=== PATIENT | female | born 1970 | race African-American/Black ===

== ENCOUNTER 2019-11-28 22:18 | Emergency (ER) | payer OTHER ==
[~2019-11-28] VITALS: Ht 165.1 cm; Wt 72.6 kg
[2019-11-28 22:35] VITALS: BP 165/99
[2019-11-28 23:06] LABS: Basophils # (auto) 0.1 uL; Basophils % (auto) 1.1 % (0.0-2.0); Eosinophils # (auto) 0.2 uL; Eosinophils % (auto) 3.4 % (0.0-7.0); Hematocrit 38.5 % (36.0-46.0); Hemoglobin 12.3 g/dL (12.2-16.2); Lymphocytes # (auto) 1.6 uL; Lymphocytes % (auto) 26.2 % (10.0-50.0); Mean Corpuscular Hemoglobin 23.5 pg (28.0-32.0); Mean Corpuscular Volume 73.5 fL (80.0-100.0); Monocytes # (auto) 0.4 uL; Monocytes % (auto) 6.7 % (0.0-12.0); Neutrophils # (auto) 3.7 uL; Neutrophils % (auto) 62.6 % (37.0-80.0); Nucleated Red Blood Cells % 0.1 %; Platelet Count (auto) 221 10^3/uL (140-450); Red Blood Cells 5.23 10^6/uL (4.0-5.20); Red Cell Distribution Width 14.3 % (11.8-14.3)
[2019-11-28 23:24] LABS: Albumin 3.8 g/dL (3.4-5.0); BUN/Creatinine Ratio 9.3; Potassium 3.5 mmol/L (3.5-5.1)
[2019-11-28 23:26] LABS: Bilirubin, Total 0.3 mg/dL (0.2-1.0); Total Protein 8.2 g/dL (6.4-8.2)
== END 2019-11-29 02:37 | disposition left against medical advice (07) ==
LOC: ER 22:22
DX: L02.414 Cutaneous abscess of left upper limb (principal); Z53.21 Procedure and treatment not carried out due to patient leaving prior to being seen by health care provider
CPT/HCPCS: 36415; 80053; 83690; 85025

== ENCOUNTER 2019-11-29 09:18 | Emergency (ER) | payer MEDICAID, OTHER ==
[~2019-11-29] VITALS: Ht 162.6 cm; Wt 72.6 kg
[2019-11-29] MEDS ORDERED: SODIUM CHLORIDE 0.9% 1,000 ML IVB ONE (09:38)
[2019-11-29] MEDS ORDERED: PANTOPRAZOLE 40 MG/10 ML VIAL INJ IV STA (09:38)
[2019-11-29] MEDS ORDERED: ONDANSETRON HCL 4 MG/2 ML VIAL IV ONE (09:45)
[2019-11-29] MEDS ORDERED: MORPHINE SULFATE 4 MG/ML SYR/VIAL IV ONE (09:45)
[2019-11-29 09:52] LABS: Basophils # (auto) 0.1 uL; Eosinophils # (auto) 0.3 uL; Hemoglobin 12.6 g/dL (12.2-16.2); Lymphocytes # (auto) 2.3 uL; Monocytes # (auto) 0.4 uL; Neutrophils # (auto) 2.5 uL; White Blood Cell 5.5 10^3/uL (4.4-10.8)
[2019-11-29 09:55] LABS: Basophils % (auto) 1.2 % (0.0-2.0); Eosinophils % (auto) 5.6 % (0.0-7.0); Lymphocytes % (auto) 41.7 % (10.0-50.0); Mean Corpuscular Hemoglobin 23.1 pg (28.0-32.0); Mean Corpuscular Hgb Conc. 31.6 g/dL (32.0-36.0); Mean Corpuscular Volume 73.3 fL (80.0-100.0); Monocytes % (auto) 7.2 % (0.0-12.0); Neutrophils % (auto) 44.3 % (37.0-80.0); Nucleated Red Blood Cells % 0.3 %; Platelet Count (auto) 230 10^3/uL (140-450); Red Blood Cells 5.46 10^6/uL (4.0-5.20); Red Cell Distribution Width 14.6 % (11.8-14.3)
[2019-11-29 10:09] LABS: Albumin 3.7 g/dL (3.4-5.0); Calcium 9.4 mg/dL (8.5-10.1); Potassium 3.1 mmol/L (3.5-5.1)
[2019-11-29 10:13] LABS: BUN/Creatinine Ratio 10.2; Bilirubin, Total 0.3 mg/dL (0.2-1.0); Total Protein 8.1 g/dL (6.4-8.2)
[2019-11-29] MEDS ORDERED: cloNIDine HCL 0.1 MG TAB PO ONE ×2 (11:45→13:30)
[2019-11-29] MEDS ORDERED: cloNIDine HCL 0.1 MG TAB ONE (13:22)
[2019-11-29 13:33] VITALS: BP 196/113
== END 2019-11-29 13:43 | disposition home or self-care (01) ==
LOC: ER 09:18
DX: R10.84 Generalized abdominal pain (principal); L03.114 Cellulitis of left upper limb; R11.2 Nausea with vomiting, unspecified; F17.210 Nicotine dependence, cigarettes, uncomplicated
CPT/HCPCS: 36415; 76705; 80053; 83690; 85025; 96361; 96374; 96375; 99284; C9113; J2270; J2405; J7030

== ENCOUNTER 2020-02-12 05:44 | Emergency (ER) | payer MEDICAID ==
[~2020-02-12] VITALS: Ht 162.6 cm; Wt 74.4 kg
[2020-02-12] MEDS ORDERED: MORPHINE SULFATE 4 MG/ML SYR/VIAL IV ONE (06:15)
[2020-02-12] MEDS ORDERED: ONDANSETRON HCL 4 MG/2 ML VIAL IV ONE (06:15)
[2020-02-12 06:54] LABS: Basophils # (auto) 0 10 ^3/uL (0-0.2); Basophils % (auto) 0.6 % (0.0-2.0); Eosinophils # (auto) 0.3 10 ^3/uL (0-0.8); Eosinophils % (auto) 4.5 % (0.0-7.0); Hematocrit 39.9 % (36.0-46.0); Hemoglobin 12.8 g/dL (12.2-16.2); Lymphocytes # (auto) 1.4 10 ^3/uL (0.4-5.4); Lymphocytes % (auto) 22.4 % (10.0-50.0); Mean Corpuscular Hemoglobin 23.4 pg (28.0-32.0); Mean Corpuscular Volume 73.2 fL (80.0-100.0); Monocytes # (auto) 0.3 10 ^3/uL (0-1.3); Monocytes % (auto) 4.4 % (0.0-12.0); Neutrophils # (auto) 4.2 10 ^3/uL (1.6-8.6); Neutrophils % (auto) 68.1 % (37.0-80.0); Nucleated Red Blood Cells % 0.1 %; Platelet Count (auto) 197 10^3/uL (140-450); Red Blood Cells 5.45 10^6/uL (4.0-5.20); Red Cell Distribution Width 14.3 % (11.8-14.3); White Blood Cell 6.1 10^3/uL (4.4-10.8)
[2020-02-12 06:56] LABS: Anion Gap 6 (5-15); Blood Urea Nitrogen 13 mg/dL (7-18); Carbon Dioxide 30 mmol/L (21-32); Chloride 106 mmol/L (98-107); Glucose 85 mg/dL (74-106); Potassium 3.1 mmol/L (3.5-5.1); Sodium 142 mmol/L (136-145)
[2020-02-12 06:57] LABS: Alanine Aminotransferase 24 U/L (13-56); Albumin 3.9 g/dL (3.4-5.0); Amylase 77 U/L (25-115); Aspartate Aminotransferase 19 U/L (15-37); BUN/Creatinine Ratio 11.6; Calcium 9.3 mg/dL (8.5-10.1); GFR African American 66 mL/min; GFR Non-African American 54 mL/min; Lipase 47 U/L (73-393); Magnesium 2.2 mg/dL (1.6-2.6)
[2020-02-12 06:59] LABS: INR 0.99 (0.9-1.15); Partial Thromboplastin Time 26.9 sec (23.64-32.05)
[2020-02-12] MEDS ORDERED: metroNIDAZOLE 500MG/100ML 100 ML IV ONE (07:00)
[2020-02-12] MEDS ORDERED: SODIUM CHLORIDE 0.9% 1,000 ML IV ONE (07:00)
[2020-02-12 07:03] LABS: Alkaline Phosphatase 82 U/L (45-117); Bilirubin, Total 0.3 mg/dL (0.2-1.0); Total Protein 8.2 g/dL (6.4-8.2)
[2020-02-12 09:09] LABS: Urine Amorphous Crystal MANY /hpf (None Seen); Urine Bacteria NONE SEEN /hpf (None Seen); Urine Blood Negative /uL (Negative); Urine Mucus FEW (None Seen); Urine WBC 2 /hpf (0 - 5)
[2020-02-12] MEDS ORDERED: POTASSIUM EFFERVESENT TAB 25 MEQ PO ONE (09:15)
[2020-02-12 09:29] LABS: Amphetamine Screen, Urine POSITIVE (NEGATIVE); Barbiturate Scree,Urine NEGATIVE (NEGATIVE); Benzodiazephine Screen, Urine NEGATIVE (NEGATIVE); Cannabinoid Screen, Urine POSITIVE (NEGATIVE); Cocaine Screen, Urine NEGATIVE (NEGATIVE); Opiate Scree,Urine POSITIVE (NEGATIVE); Phencyclidine Screen, Urine NEGATIVE (NEGATIVE)
[2020-02-12 09:40] VITALS: BP 178/76
== END 2020-02-12 09:46 | disposition home or self-care (01) ==
LOC: ER 05:44
DX: K52.9 Noninfective gastroenteritis and colitis, unspecified (principal); E87.6 Hypokalemia; E86.0 Dehydration; I10 Essential (primary) hypertension
CPT/HCPCS: 36415; 71045; 74176; 80053; 80307; 81001; 82150; 83690; 83735; 84484; 85025; 85610; 85730; 93005; 96361; 96365; 96366; 96375; 99285; J2270; J2405; J3490; J7030

== ENCOUNTER 2023-04-15 06:12 | Emergency (ER) | payer MEDICAID ==
[~2023-04-15] VITALS: Ht 165.1 cm; Wt 74.7 kg
[2023-04-15] MEDS ORDERED: HYDROcodone-ACET 5/325MG TAB PO ONE (06:45)
[2023-04-15] MEDS ORDERED: ONDANSETRON ODT 4 MG TAB PO ONE (06:45)
[2023-04-15] MEDS ORDERED: IBUPROFEN 600 MG TAB PO ONE (06:45)
[2023-04-15] MEDS ORDERED: LISINOPRIL 20 MG TAB PO ONE (06:45)
[2023-04-15] MEDS ORDERED: cloNIDine HCL 0.1 MG TAB PO ONE ×2 (08:15→09:15)
[2023-04-15] MEDS ORDERED: hydrALAZINE HCL 10 MG TAB PO ONE (09:15)
[2023-04-15] MEDS ORDERED: CEPHALEXIN 250 MG CAP PO ONE (09:15)
[2023-04-15] MEDS ORDERED: AMLO1TAB23 PO ×2 (09:22→16:03)
[2023-04-15] MEDS ORDERED: CEPH250C PO ×2 (09:22→16:03)
[2023-04-15] MEDS ORDERED: IBU600T PO ×2 (09:55→16:03)
[2023-04-15 10:00] VITALS: BP 154/85
== END 2023-04-15 10:45 | disposition home or self-care (01) ==
LOC: ER 06:12
DX: L03.032 Cellulitis of left toe (principal); I10 Essential (primary) hypertension; F17.210 Nicotine dependence, cigarettes, uncomplicated; F12.90 Cannabis use, unspecified, uncomplicated; Z91.148 Patient's other noncompliance with medication regimen for other reason; Z79.899 Other long term (current) drug therapy; Z98.51 Tubal ligation status; Z98.890 Other specified postprocedural states
CPT/HCPCS: 73630; 93005; 99285; Q0162

== ENCOUNTER 2023-11-13 10:08 | Emergency (ER) | payer MEDICAID ==
[~2023-11-13] VITALS: Ht 165.1 cm; Wt 75.0 kg
[~2023-11-13 10:08] MED LIST: AMLO1TAB23 PO; CEPH250C PO; IBU600T PO
[2023-11-13 10:25] VITALS: BP 176/108; PULSE 83; RESP 15; TEMP 98.3; O2SAT 99
[2023-11-13 10:35] LABS: Eosinophils # (auto) 0.2 10 ^3/uL (0-0.8); Monocytes # (auto) 0.4 10 ^3/uL (0-1.3); Nucleated Red Blood Cells % 0.1 %
[2023-11-13 10:37] LABS: Basophils # (auto) 0 10 ^3/uL (0-0.2); Basophils % (auto) 0.9 % (0.0-2.0); Hematocrit 39.2 % (36.0-46.0); Hemoglobin 12.5 g/dL (12.2-16.2); Lymphocytes % (auto) 42.2 % (10.0-50.0); Mean Corpuscular Hemoglobin 23.5 pg (28.0-32.0); Mean Corpuscular Hgb Conc. 31.9 g/dL (32.0-36.0); Mean Corpuscular Volume 73.6 fL (80.0-100.0); Monocytes % (auto) 7.8 % (0.0-12.0); Neutrophils # (auto) 2.1 10 ^3/uL (1.6-8.6); Neutrophils % (auto) 45.1 % (37.0-80.0); Red Blood Cells 5.33 10^6/uL (4.0-5.20); Red Cell Distribution Width 14.4 % (11.8-14.3); White Blood Cell 4.6 10^3/uL (4.4-10.8)
[2023-11-13] MEDS: cloNIDine HCL 0.1 MG TAB PO ONE (10:41)
[2023-11-13] MEDS: amLODIPine BESYLATE 5 MG TAB PO ONE (10:42)
[2023-11-13 10:51] LABS: Alanine Aminotransferase 25 U/L (7-40); Albumin 4.7 g/dL (3.2-4.8); Alkaline Phosphatase 77 U/L (46-116); Anion Gap 5 (5-15); Aspartate Aminotransferase 19 U/L (13-40); BUN/Creatinine Ratio 11.2 (10.0-20.0); Bilirubin, Total 0.3 mg/dL (0.2-1.0); Blood Urea Nitrogen 12 mg/dL (9-23); Calcium 10.1 mg/dL (8.5-10.1); Carbon Dioxide 28 mmol/L (20-30); Chloride 108 mmol/L (98-107); Glucose 104 mg/dL (74-106); Potassium 3.6 mmol/L (3.5-5.1); Sodium 141 mmol/L (136-145)
[2023-11-13 11:14] VITALS: PULSE 71
== END 2023-11-13 22:54 | disposition left against medical advice (07) ==
LOC: ER 10:08
DX: I24.9 Acute ischemic heart disease, unspecified (principal); I16.0 Hypertensive urgency; R07.89 Other chest pain; I10 Essential (primary) hypertension; F12.10 Cannabis abuse, uncomplicated; F17.210 Nicotine dependence, cigarettes, uncomplicated; Z98.51 Tubal ligation status
CPT/HCPCS: 36415; 80053; 81001; 84484; 85025; 93005; 99291

== ENCOUNTER 2024-08-13 08:00 | Emergency (ER) | payer MEDICAID ==
[~2024-08-13] VITALS: Ht 165.1 cm; Wt 79.9 kg
[2024-08-13] MEDS: cloNIDine HCL 0.1 MG TAB ONE (08:20)
[2024-08-13] MEDS: cloNIDine HCL 0.1 MG TAB PO ONE (08:20)
--- NOTE | 2024-08-13 08:39 | ED.PDOC ---
History of Present Illness HPI Comments 54Y F with PMHx HTN and presents to ED for chief complaint headache since last night. Pt states she is not taking any HTN medications. BP 189/112 during triage. Pt smokes cigarettes and marijuana. No known allergies. Chief Complaint: Headache Time Seen by : 08:20 Primary Care Provider: UNKNOWN Reviewed Notes: Medications, Allergies Allergies: Coded Allergies: NO KNOWN ALLERGIES (Unverified , 04/05/16) Home Meds Active Scripts Ibuprofen Micronized (MOTRIN TABLET) 600 Mg Tb, 600 MG PO TID PRN, #40 TAB *Black box warning-NSAIDS can increase risk of PA & hypertension, GI irritation, ulceration, bleed, perferation. Do not use post cardiac surgery. Use short duration/lowest effective dose. Prov:SEAN GRIGSBY MD 04/15/23 Cephalexin (KEFLEX CAPSULE) 250 Mg Cp, 1 CAP PO QID, #28 CAP Prov:SEAN GRIGSBY MD 04/15/23 Amlodipine Besylate (Amlodipine Besylate) 10 Mg Tab, 1 TAB PO DAILY, #30 TAB 5 Refills Prov:SEAN GRIGSBY MD 04/15/23 Information Source: Patient Mode of Arrival: Ambulatory Severity: Mild Timing: Hours Duration: Since onset Past Medical History PAST MEDICAL HISTORY: HTN Surgical History: , Tubal Ligation RELIEF PILOT History: No Pertinent RELIEF PILOT History Family History Family History: Family hx of DM, Family hx of Cancer, Family hx of heart leesa Social History Smoker: Cigarettes Alcohol: Denies ETOH Use Drugs: Marijuana Lives In: Home Constitutional: denies: chills, diaphoresis, fatigue, fever, malaise, sweats, weakness, others EENTM: denies: blurred vision, double vision, ear bleeding, ear discharge, ear drainage, ear pain, ear ringing, eye pain, eye redness, hearing loss, mouth pain, mouth swelling, nasal discharge, nose bleeding, nose congestion, nose pain, photophobia, tearing, throat pain, throat swelling, voice changes, others Respiratory: denies: cough, hemoptysis, orthopnea, SOB at rest, shortness of breath, SOB with excertion, stridor, wheezing, others Cardiovascular: denies: chest pain, dizzy spells, diaphoresis, Dyspnea on exertion, edema, irregular heart beat, left arm pain, lightheadedness, palpitations, PND, syncope, others Gastrointestinal: denies: abdomen distended, abdominal pain, blood streaked bowels, constipated, diarrhea, dysphagia, difficulty swallowing, hematemesis, melena, nausea, poor appetite, poor fluid intake, rectal bleeding, rectal pain, vomiting, others Genitourinary: denies: abnormal vagina bleeding, burning, dyspareunia, dysuria, flank pain, frequency, hematuria, incontinence, pain, , vagina discharge, urgency, others Neurological: reports: headache; denies: dizziness, fainting, left sided numbness, left sided weakness, numbness, paresthesia, pre-existing deficit, right sided numbness, right sided weakness, seizure, speech problems, tingling, tremors, weakness, others Musculoskeletal: denies: back pain, gout, joint pain, joint swelling, muscle pain, muscle stiffness, neck pain, others Integumetry: denies: bruises, change in color, change in hair/nails, dryness, laceration, lesions, lumps, rash, wounds, others Allergic/Immunocompromised: denies: Difficulty Healing, Frequent Infections, Hives, Itching, others Hematologic/Lymphatic: denies: anemia, blood clots, easy bleeding, easy bruising, swollen glands, others Endocrine: denies: excessive hunger, excessive sweating, excessive thirst, excessive urination, flushing, intolerance to cold, intolerance to heat, unexplained weight gain, unexplained weight loss, others Psychiatric: denies: anxiety, bipolar disorder, depression, hopeless, panic disorder, schizophrenia, sleepless, suicidal, others All Other Systems: Reviewed and Negative Physical Exam General Appearance: Moderate Distress, Normal HEENT: Normal ENT Inspection, Pharynx Normal, TMs Normal Neck: Full Range of Motion, Non-Tender, Normal, Normal Inspection Respiratory: Chest Non-Tender, Lungs Clear, No Accessory Muscle Use, No Respiratory Distress, Normal Breath Sounds Cardiovascular: No Edema, No JVD, No Murmur, No Gallop, Normal Peripheral Pulses, Regular Rate/Rhythm Breast Exam: Deferred Gastrointestinal: No Organomegaly, Non Tender, No Pulsatile Mass, Normal Bowel Sounds, Soft Genitalia: Deferred Pelvic: Deferred Rectal: Deferred Extremities: No calf tenderness, Normal capillary refill, Normal inspection, Normal range of motion, Non-tender, No pedal edema Musculoskeletal : Apperance: Normal Neurologic: Alert, senior front end developer II-XII nml as Tested, No Motor Deficits, Normal Affect, Normal Mood, No Sensory Deficits Cerebellar Function: Normal Reflexes: Normal Skin: Dry, Normal Color, Warm Peripheral Pulses: 3+ Radial (R), 3+ Radial (L) Lymphatic: No Adenopathy Was a procedure done? Was a procedure done?: No Differential Dx Considerations may include: Hypertension Headache X-Ray, Labs, Meds, VS Vital Signs Date Time Temp Pulse Resp B/P (MAP) Pulse Ox O2 Delivery O2 Flow Rate FiO2 08/13/24 09:50 98 16 98 Room Air* 0 21 08/13/24 09:50 98.4 98 16 163/98 (119) 97 98.4 08/13/24 09:45 163/98 08/13/24 08:20 189/112 08/13/24 08:15 98.0 80 18 189/112 (137) 99 Current Medications Medications (Trade) Dose Ordered Sig/Mary Ellen Route Start Time Stop Time Status Last Admin Clonidine HCl (Catapres Tablet) 0.2 mg ONCE ONCE PO 08/13/24 08:15 08/13/24 08:16 DC 08/13/24 08:20 [place] [id number] Ph: [phone] DIAGNOSTIC IMAGING Diagnostic Imaging Report : [id number] Signed PATIENT: BECKY DUNBAR ACCT: [id number] UNIT: [id number] : 1970 LOC: ER ROOM / BED: / AGE / SEX: 54 / F ADM STATUS: REG ER SERVICE 4 ORDERING PHYSICIAN: JOYCE DING MD PROCEDURE(s): HWOCT - HEAD WITHOUT CONTRAST REASON: HEADACHE ORDER NUMBER(s): [id number], ACCESSION NUMBER(s): [id number] EXAM: CT HEAD WITHOUT CONTRAST HISTORY: HEADACHE COMPARISON: CT ABD PELVIS WO CONTRAST on DOS: 02/12/20 TECHNIQUE: Axial images of the head were obtained and reformatted in coronal and sagittal planes. All CT scans at this medical facility are performed using dose modulation techniques as appropriate to a performed exam including the following: Automated exposure control was utilized; adjustment of the MA and/or KV according to patient size; and use of iterative reconstruction technique. CT Dose: CTDI volume is 61.87 mGy. Dose-length product is 991.63 mGy*cm FINDINGS: There is no evidence of acute intracranial hemorrhage, mass, mass effect midline shift. There is no hydrocephalus or extra-axial fluid collection. Alfonso-white matter differentiation is maintained.. There is an air-fluid level in the left maxillary sinus. The mastoid air cells are clear. Calvarium is intact. IMPRESSION: 1. No acute intracranial process. 2. Air-fluid level in the left maxillary sinus suggestive of acute sinusitis. HS:Y ATED BY: DARWIN REYES MD DICTATED DATE/TIME: 08/13/24912 SIGNED BY: DARWIN REYES MD SIGNED DATE/TIME: 08/13/24912 CC: Patient alert. Complaining of headache. History of hypertension. Vitals stable. Blood pressure elevated. She was given clonidine. Saturation pristine on room air. Reviewed her history. Continue registered nurse cardiac telemetry. CT of the head reviewed does not show any acute changes. Sinusitis. Was given prescription of Augmentin antibiotic pain Blood pressure controlled. States that she feeling better. Insists on going home. Explained to the patient. Was told to follow up with her primary care physician. Was told to come back if there is any problem. Time of 1ST Reevaluation: 08:50 Reevaluation 1ST: Improved Patient Education/Counseling: Diagnosis, Treatment Family Education/Counseling: No Family Present Departure 1 Departure Time of Disposition: 08:55 Impression: Primary Impression: Hypertensive emergency Additional Impression: Sinusitis Qualified Codes: J01.00 - Acute maxillary sinusitis, unspecified Disposition: 01 HOME / SELF CARE / HOMELESS Condition: Good e-Prescriptions Amoxicillin & Pot Clavulanate (Augmentin) 500 Mg Tab 1 TAB PO BID for 7 Days, #14 TAB Prov: JOYCE DING MD 08/13/24 Discharged With: Self Critical Care Note Critical Care Time?: Yes (45 min-critical care time only) Stability Stability form required: No Heart Score Heart Score: Heart Score Response (Comments) Value History N/A 0 EKG N/A 0 Age N/A 0 Risk Factors N/A 0 Troponin N/A 0 Total 0 I personally scribed for JOYCE DING MD ([email or web address]) on 08/13/24 at 08:39. Electronically submitted by Juliana Ignacio ([employer]). I personally scribed for JOYCE DING MD ([email or web address]) on 08/13/24 at 09:16. Electronically submitted by Juliana Ignacio ([employer]). JOYCE DING MD Aug 13, 2024 08:39
--- NOTE | 2024-08-13 09:15 | DVH ---
EXAM: CT HEAD WITHOUT CONTRAST HISTORY: HEADACHE COMPARISON: CT ABD PELVIS WO CONTRAST on DOS: 02/12/20 TECHNIQUE: Axial images of the head were obtained and reformatted in coronal and sagittal planes. All CT scans at this medical facility are performed using dose modulation techniques as appropriate t o a performed exam including the following: Automated exposure control was utilized; adjustment of th e MA and/or KV according to patient size; and use of iterative reconstruction technique. CT Dose: CTDI volume is 61.87 mGy. Dose-length product is 991.63 mGy*cm FINDINGS: There is no evidence of acute intracranial hemorrhage, mass, mass effect midline shift. There is no h ydrocephalus or extra-axial fluid collection. Alfonso-white matter differentiation is maintained.. There is an air-fluid level in the left maxillary sinus. The mastoid air cells are clear. Calvarium i s intact. IMPRESSION: 1. No acute intracranial process. 2. Air-fluid level in the left maxillary sinus suggestive of acute sinusitis. HS:Y
[2024-08-13 09:50] VITALS: BP 163/98; PULSE 98; RESP 16; TEMP 98.4; O2SAT 98
[2024-08-13] MEDS ORDERED: AMOX500T86 PO (10:01)
== END 2024-08-13 10:14 | disposition home or self-care (01) ==
LOC: ER 08:00
DX: I16.1 Hypertensive emergency (principal); J32.9 Chronic sinusitis, unspecified; F17.210 Nicotine dependence, cigarettes, uncomplicated; F15.90 Other stimulant use, unspecified, uncomplicated; Z98.890 Other specified postprocedural states; Z79.899 Other long term (current) drug therapy
CPT/HCPCS: 70450

== ENCOUNTER 2025-09-05 15:32 | Emergency (ER) | payer MEDICAID ==
[~2025-09-05] VITALS: Ht 165.1 cm; Wt 78.6 kg
[~2025-09-05 15:32] MED LIST changes: +AMOX500T86 PO
--- NOTE | 2025-09-05 15:54 | ED.PDOC ---
GI ASSESSMENT HPI Comments 55 y/o F, with PMHx of HTN presents to the ED for CC of abdominal pain. Patient states, she has been experiencing intermittent diffuse abdominal pain with associated nausea, vomiting, and diarrhea x1week. Patient reports, a recent abdominal operation [id number] prior to remove a tumor. Patient denies melena, hematemesis, fever, chills, or urinary symptoms. No other symptoms or modifying factors are present at this time. Chief Complaint: Abdominal Pain Time Seen by MD: 15:45 Primary Care Provider: UNKNOWN Reviewed Notes: Nurses Notes, Medications, Allergies Allergies: Coded Allergies: NO KNOWN ALLERGIES (Unverified , 04/05/16) Home Meds Active Scripts Amoxicillin & Pot Clavulanate (Augmentin) 500 Mg Tab, 1 TAB PO BID for 7 Days, #14 TAB Prov:JOYCE DING MD 08/13/24 Ibuprofen Micronized (MOTRIN TABLET) 600 Mg Tb, 600 MG PO TID PRN, #40 TAB *Black box warning-NSAIDS can increase risk of HI & hypertension, GI irritation, ulceration, bleed, perferation. Do not use post cardiac surgery. Use short duration/lowest effective dose. Prov:SEAN GRIGSBY MD 04/15/23 Cephalexin (KEFLEX CAPSULE) 250 Mg Cp, 1 CAP PO QID, #28 CAP Prov:SEAN GRIGSBY MD 04/15/23 Amlodipine Besylate (Amlodipine Besylate) 10 Mg Tab, 1 TAB PO DAILY, #30 TAB 5 Refills Prov:SEAN GRIGSBY MD 04/15/23 Information Source: Patient Mode of Arrival: Ambulatory Timing: Weeks Duration: Intermittent Prehospital treatment: None Vomitus: Watery Stool: Watery Severity: Moderate Recent: None Recent Hx of: Abdominal Operations Pain Location: Diffuse Modifying Factors: Nothing Associated sign and symptoms: Nausea, Vomiting, Diarrhea, Abdominal Pain Past Medical History PAST MEDICAL HISTORY: HTN Surgical History: , Tubal Ligation GEOPHYSICAL E LOGGER History: No Pertinent GEOPHYSICAL E LOGGER History Family History Family History: Family hx of DM, Family hx of Cancer, Family hx of heart leesa Social History Smoker: Cigarettes Alcohol: Denies ETOH Use Drugs: Marijuana Lives In: Home Constitutional: denies: chills, diaphoresis, fatigue, fever, malaise, sweats, weakness, others EENTM: denies: blurred vision, double vision, ear bleeding, ear discharge, ear drainage, ear pain, ear ringing, eye pain, eye redness, hearing loss, mouth pain, mouth swelling, nasal discharge, nose bleeding, nose congestion, nose pa in, photophobia, tearing, throat pain, throat swelling, voice changes, others Respiratory: denies: cough, hemoptysis, orthopnea, SOB at rest, shortness of breath, SOB with excertion, stridor, wheezing, others Cardiovascular: denies: chest pain, dizzy spells, diaphoresis, Dyspnea on exertion, edema, irregular heart beat, left arm pain, lightheadedness, palpitations, PND, syncope, others Gastrointestinal: reports: abdominal pain, diarrhea, nausea, vomiting; denies: abdomen distended, blood streaked bowels, constipated, dysphagia, difficulty swallowing, hematemesis, melena, poor appetite, poor fluid intake, rectal bleeding, rectal pain, others Genitourinary: denies: abnormal vagina bleeding, burning, dyspareunia, dysuria, flank pain, frequency, hematuria, incontinence, pain, , vagina discharge, urgency, others Neurological: denies: dizziness, fainting, headache, left sided numbness, left sided weakness, numbness, paresthesia, pre-existing deficit, right sided numbness, right sided weakness, seizure, speech problems, tingling, tremors, weakness, others Musculoskeletal: denies: back pain, gout, joint pain, joint swelling, muscle pain, muscle stiffness, neck pain, others Integumetry: denies: bruises, change in color, change in hair/nails, dryness, laceration, lesions, lumps, rash, wounds, others Allergic/Immunocompromised: denies: Difficulty Healing, Frequent Infections, Hives, Itching, others Hematologic/Lymphatic: denies: anemia, blood clots, easy bleeding, easy bruising, swollen glands, others Physical Exam General Appearance: No Apparent Distress, Normal, Other (appears uncomfortable) HEENT: Normal ENT Inspection, Pharynx Normal Neck: Full Range of Motion, Non-Tender, Normal, Normal Inspection Respiratory: Chest Non-Tender, Lungs Clear, No Accessory Muscle Use, No Respiratory Distress, Normal Breath Sounds Cardiovascular: No Edema, No Murmur, No Gallop, Normal Peripheral Pulses, Regular Rate/Rhythm Breast Exam: Deferred Gastrointestinal: Diffuse, No Organomegaly, No Pulsatile Mass, Normal Bowel Sounds, Soft, Tenderness Genitalia: Deferred Pelvic: Deferred Rectal: Deferred Extremities: No calf tenderness, Normal capillary refill, Normal inspection, Normal range of motion, Non-tender, No pedal edema Musculoskeletal : Apperance: Normal Neurologic: Alert, manager marketing sales II-XII nml as Tested, No Motor Deficits, Normal Affect, Normal Mood, No Sensory Deficits Cerebellar Function: Normal Reflexes: Normal Skin: Dry, Normal Color, Warm Lymphatic: No Adenopathy Was a procedure done? Was a procedure done?: No GI differential Dx Differential Diagnosis: Diverticular disease, Gastritis/PUD, Gastroenteritis, Inflammatory BD, Bacterial, Viral X-Ray, Labs, Meds, VS Vital Signs Date Time Temp Pulse Resp B/P (MAP) Pulse Ox O2 Delivery O2 Flow Rate FiO2 09/05/25 16:40 97.9 60 17 149/97 (114) 96 97.9 09/05/25 16:40 60 17 96 Room Air 0 09/05/25 15:43 65 09/05/25 15:34 97.8 55 20 178/114 95 97.8 Lab Test 09/05/25 15:52 Range/Units White Blood Count 4.3 L 4.4-10.8 10^3/uL Red Blood Count 5.78 H 4.0-5.20 10^6/uL Hemoglobin 12.8 12.2-16.2 g/dL Hematocrit 40.2 36.0-46.0 % Mean Corpuscular Volume 69.6 L 80.0-100.0 fL Mean Corpuscular Hemoglobin 22.2 L 28.0-32.0 pg Mean Corpuscular Hemoglobin Concent 31.9 L 32.0-36.0 g/dL Red Cell Distribution Width 15.5 H 11.8-14.3 % Platelet Count 265 140-450 10^3/uL Mean Platelet Volume 8.2 6.9-10.8 fL Neutrophils (%) (Auto) 42.7 37.0-80.0 % Lymphocytes (%) (Auto) 42.2 10.0-50.0 % Monocytes (%) (Auto) 6.2 0.0-12.0 % Eosinophils (%) (Auto) 8.5 H 0.0-7.0 % Basophils (%) (Auto) 0.4 0.0-2.0 % Neutrophils # (Auto) 1.8 1.6-8.6 10 ^3/uL Lymphocytes # (Auto) 1.8 0.4-5.4 10 ^3/uL Monocytes # (Auto) 0.3 0-1.3 10 ^3/uL Eosinophils # (Auto) 0.4 0-0.8 10 ^3/uL Basophils # (Auto) 0 0-0.2 10 ^3/uL Nucleated Red Blood Cells 0.3 % Sodium Level 141 136-145 mmol/L Potassium Level 3.6 3.5-5.1 mmol/L Chloride Level 105 98-107 mmol/L Carbon Dioxide Level 26 20-31 mmol/L Anion Gap 10 5-15 Blood Urea Nitrogen 12 9-23 mg/dL Creatinine 1.01 0.550-1.02 mg/dL Glomerular Filtration Rate Calc 65 >90 mL/min BUN/Creatinine Ratio 11.9 10.0-20.0 Serum Glucose 96 74-106 mg/dL Lactic Acid Level 1.1 0.4-2.0 mmol/L Calcium Level 10.2 8.7-10.4 mg/dL Total Bilirubin 0.3 0.2-1.0 mg/dL Aspartate Amino Transferase (AST) 22 13-40 U/L Alanine Aminotransferase (ALT) 29 7-40 U/L Alkaline Phosphatase 135 H 46-116 U/L Total Protein 8.1 5.7-8.2 g/dL Albumin 4.6 3.2-4.8 g/dL Lipase 25 12-53 U/L Current Medications Medications (Trade) Dose Ordered Sig/Mary Ellen Route Start Time Stop Time Status Last Admin Sodium Chloride 1,000 ml @ 1,000 mls/hr Q1H ONCE IV 09/05/25 16:00 09/05/25 16:59 DC 09/05/25 16:32 Ondansetron HCl (Zofran) 4 mg ONCE ONCE IV 09/05/25 16:00 09/05/25 16:01 DC 09/05/25 16:31 Ketorolac Tromethamine (Toradol Injection) 15 mg ONCE ONCE IV 09/05/25 16:00 09/05/25 16:01 DC 09/05/25 16:32 Time of 1ST Reevaluation: 16:15 Reevaluation 1ST: Unchanged Patient Education/Counseling: Diagnosis, Treatment Family Education/Counseling: No Family Present SEPSIS Sepsis Screen Date sepsis recognized/suspect: Sep 05, 2025 Time Sepsis recognized/suspect: 1534 Recent Procedure: No On Antibiotic Therapy: No Respiratory Rate >20: No Heart Rate >90: No Temp<36 C (96.8 F) or >38.3 C: No SBP <90 or MAP <65 mmHG: No New Acute Mental Status Change: No Is the patient on CPAP, BIPAP,: No Physician Orders Urinalysis (09/05/25 15:45) Electrocardigram (09/05/25 15:51) Ct Ab Pel With Iv Con Only (09/05/25 15:50) Vital Signs Date Time Temp Pulse Resp B/P (MAP) Pulse Ox O2 Delivery O2 Flow Rate FiO2 09/05/25 16:40 97.9 60 17 149/97 (114) 96 97.9 09/05/25 16:40 60 17 96 Room Air 0 09/05/25 15:43 65 09/05/25 15:34 97.8 55 20 178/114 95 97.8 Laboratory Tests Test 09/05/25 15:52 Lactic Acid Level 1.1 mmol/L (0.4-2.0) White Blood Count 4.3 10^3/uL (4.4-10.8) L Medications Medications Dose Ordered Sig/Mary Ellen Route Start Time Stop Time Status Last Admin Dose Admin Ketorolac Tromethamine 15 mg ONCE ONCE IV 09/05/25 16:00 09/05/25 16:01 DC 09/05/25 16:32 Ondansetron HCl 4 mg ONCE ONCE IV 09/05/25 16:00 09/05/25 16:01 DC 09/05/25 16:31 Sodium Chloride 1,000 ml @ 1,000 mls/hr Q1H ONCE IV 09/05/25 16:00 09/05/25 16:59 DC 09/05/25 16:32 Departure 1 Departure Time of Disposition: 19:38 (55 y/o F, with PMHx of HTN presents to the ED for CC of abdominal pain. Patient reporting recent abdominal surgery, now coming in with abdominal discomfort. Consider possible small bowel obstruction CT of the abdomen and pelvis was performed which shows no evidence of any acute intra- abdominal process. Shows a mildly dilated common bile duct, however, no evidence of cholelithiasis. Patient has normal liver function test, not concerning for acute biliary obstruction. Does not warrant ultrasound imaging of the abdomen. CBC with no evidence of critical leukocytosis or significant anemia. Metabolic panel with no evidence of acute electrolyte abnormalities. Liver function tests within normal limits. Urinalysis with no signs to suggest a UTI. Patient may have had recent viral gastroenteritis causing symptoms. Patient was given IV Toradol, IV Zofran, IV fluids with improvement of symptoms. Stable for discharge further outpatient symptomatic management given reassuring workup today.) Impression: Primary Impression: Abdominal pain Additional Impression: Nausea vomiting and diarrhea Disposition: HOME / SELF CARE / HOMELESS Condition: Stable e-Prescriptions Famotidine (PEPCID TABLET) 20 Mg Tb 1 TAB PO DAILY for 14 Days, #14 TAB 5 Refills Prov: TERENCE OSPINA MD 09/05/25 Ondansetron Odt 4MG Tab (ZOFRAN PO) 4 Mg Tb 4 MG PO Q6HPRN PRN for 3 Days, #12 TAB ODT TAB-DISSOLVE IN MOUTH, THEN SWALLOW Prov: TERENCE OSPINA MD 09/05/25 Discharged With: Self Critical Care Note Critical Care Time?: No Stability Stability form required: No Heart Score Heart Score: Heart Score Response (Comments) Value History N/A 0 EKG N/A 0 Age N/A 0 Risk Factors N/A 0 Troponin N/A 0 Total 0 I personally scribed for RAMONA COBB MD ([email or web address]) on 09/05/25 at 15:54. Electronically submitted by Rachna Brasher ([email or web address]). RAMONA COBB MD Sep 05, 2025 15:54 TERENCE OSPINA MD Sep 05, 2025 19:42
[2025-09-05 16:08] LABS: Hematocrit 40.2 % (36.0-46.0); Hemoglobin 12.8 g/dL (12.2-16.2); Mean Corpuscular Hemoglobin 22.2 pg (28.0-32.0); Mean Corpuscular Volume 69.6 fL (80.0-100.0); Nucleated Red Blood Cells % 0.3 %
[2025-09-05 16:23] LABS: Alanine Aminotransferase 29 U/L (7-40); Albumin 4.6 g/dL (3.2-4.8); Alkaline Phosphatase 135 U/L (46-116); Anion Gap 10 (5-15); BUN/Creatinine Ratio 11.9 (10.0-20.0); Bilirubin, Total 0.3 mg/dL (0.2-1.0); Blood Urea Nitrogen 12 mg/dL (9-23); Calcium 10.2 mg/dL (8.7-10.4); Carbon Dioxide 26 mmol/L (20-31); Chloride 105 mmol/L (98-107); Glucose 96 mg/dL (74-106); Potassium 3.6 mmol/L (3.5-5.1); Sodium 141 mmol/L (136-145); Total Protein 8.1 g/dL (5.7-8.2)
[2025-09-05] MEDS: ONDANSETRON HCL 4 MG/2 ML VIAL IV ONE (16:31)
[2025-09-05] MEDS: SODIUM CHLORIDE 0.9% 1,000 ML IV ONE (16:32)
[2025-09-05] MEDS: KETOROLAC TROMETH 30 MG/ML 1ML VIAL IV ONE (16:32)
[2025-09-05] MEDS: IOHEXOL 300 MG/ML 100ML BOTTLE IJ ONE (17:45)
--- NOTE | 2025-09-05 18:30 | DVH ---
Exam: CT CT AB PEL WITH IV CON ONLY History: abdominal pain Comparison Study: US ABDOMEN COMPLETE on DOS: 09/13/24, CT ABD PELVIS WO CONTRAST on DOS: 02/12/20 TECHNIQUE: A digital speed reading teacher image was obtained. During the uneventful, intravenous administration of contrast material, multislice data acquisition was obtained through the abdomen and pelvis. The data set was subsequently reconstructed into multiplanar reformats. RADIATION DOSE: CTDI vol 15.8 mGy. DLP 786.5 mGy.cm Findings: Lungs: The lung bases are clear. Liver: Diffuse hypoattenuation of the liver suggestive of hepatic steatosis. Spleen: Unremarkable. Pancreas: Unremarkable. Gallbladder: The common bile duct is mildly dilated to 7 mm. The gallbladder is unremarkable. Adrenals: Unremarkable Kidneys: Unremarkable. Pelvic Viscera: Unremarkable. Vasculature: Unremarkable. Retroperitoneum: Unremarkable. Bowel: No bowel obstruction. Portions of the bowel are decompressed, limiting assessment. The appendix is normal. Musculoskeletal: Chronic fracture deformities of the right superior and inferior pubic ramus in addition to the sacrum. Soft tissues: Unremarkable Impression: 1. Mild dilation of the common bile duct. If there is right upper quadrant pain, consider a right upper quadrant ultrasound in further assessment. 2. Incidental findings as detailed.
[2025-09-05] MEDS ORDERED: FAMO20TA10 PO (19:41)
[2025-09-05] MEDS ORDERED: ZOFR4T PO (19:41)
[2025-09-05 19:44] VITALS: BP 186/120; PULSE 59; RESP 18; TEMP 98.4
[2025-09-05 19:54] VITALS: O2SAT 97
--- NOTE | 2025-09-06 10:14 | ECG ---
[facility] Test Date: 2025-09-05 Test Time: 15:43:46 Pat Name: BECKY DUNBAR Department: ED Room: Gender: F Well Driller: JEOVANNY : 1970 Requested By: RAMONA COBB Order Number: [id number] Reading MD: Adrián Amaya Measurements Intervals [place] Rate: 65 P: 32 PA: 55 QRS: 51 QRSD: 93 T: 96 QT: 476 QTc: 495 Interpretive Statements Sinus rhythm Short PA interval Probable left atrial enlargement LVH with secondary repolarization abnormality Anterior infarct, old Electronically Signed On 09-12-2025 18:42:42 PST by Adrián Amaya Please click the below link to view image of tracing.
== END 2025-09-05 20:09 | disposition home or self-care (01) ==
LOC: ER 15:32
DX: R10.84 Generalized abdominal pain (principal); R19.7 Diarrhea, unspecified; R11.2 Nausea with vomiting, unspecified; I10 Essential (primary) hypertension; F17.210 Nicotine dependence, cigarettes, uncomplicated; Z98.51 Tubal ligation status; Z98.890 Other specified postprocedural states
CPT/HCPCS: 36415; 74177; 80053; 83605; 83690; 85025; 93005; 96361; 96374; 96375; 99285; J1885; J2405; J7030; Q9967

== ENCOUNTER 2025-09-16 20:07 | Emergency (ER) | payer MEDICAID ==
[~2025-09-16 20:07] MED LIST changes: +FAMO20TA10 PO; +ZOFR4T PO
--- NOTE | 2025-09-16 20:36 | ED.PDOC ---
History of Present Illness HPI Comments 55-year-old female who came to ER for abdominal pain. Patient has been experiencing intermittent episodes of epigastric abdominal pain for over week, associated with loss of appetite. Denies any vomiting or changes in bowel habits. Patient is seen here for similar complaints, was given Pepcid but offered no relief. She does have a recent abdominal surgery for a bladder tumor resection done last May 2025 at [facility] REVIEW OF SYSTEMS: General: No fever, no chills, or fatigue HEENT: No sore throat, no earache, no congestion, no neck pain. Cardiac: No chest pain. No palpitations. Lungs: No shortness of breath, no cough. GI: + nausea, no vomiting, no diarrhea, no constipation, + abdominal pain : No dysuria, frequency, or urgency. No hematuria. Musculoskeletal: No joint pain , no joint swelling, no extremity edema. Skin: No rash, no itching. Neuro: No headache, no dizziness, no weakness (And as sated in HPI) PHYSICAL EXAM: General: Awake, alert and oriented. No acute distress. Skin: Skin in warm, dry and intact. Appropriate color for ethnicity. HEENT: The head is normocephalic and atraumatic. Conjunctivae are clear without exudates or hemorrhage. Sclera is non-icteric. Eyelids are normal in appearance without swelling or lesions. Oral mucosa is pink and moist Neck: The neck is supple with normal range of motion. No JVD. Cardiac: Heart rate and rhythm are normal. No murmurs, gallops, or rubs are auscultated. Respiratory: No signs of respiratory distress. Lung sounds are clear in all lobes bilaterally without rales, rhonchi, or wheezes. Abdominal: Abdomen is soft, + epigastric-tender without distention, guarding or rigidity. Bowel sounds are present and normoactive in all four quadrants. Extremities: Lower extremities without edema. Neurological: The patient is awake, alert and oriented to person, place, and time with normal speech. Speech is clear. There is no facial asymmetry. Psychiatric: Appropriate mood and affect. Good judgement and insight. Chief Complaint: Abdominal Pain Time Seen by MD: 20:36 Primary Care Provider: UNKNOWN Reviewed Notes: Nurses Notes Allergies: Coded Allergies: NO KNOWN ALLERGIES (Unverified , 04/05/16) Home Meds Active Scripts Famotidine (PEPCID TABLET) 20 Mg Tb, 1 TAB PO DAILY for 14 Days, #14 TAB 5 Refills Prov:TERENCE OSPINA MD 09/05/25 Ondansetron Odt 4MG Tab (ZOFRAN PO) 4 Mg Tb, 4 MG PO Q6HPRN PRN for 3 Days, #12 TAB ODT TAB-DISSOLVE IN MOUTH, THEN SWALLOW Prov:TERENCE OSPINA MD 09/05/25 Amoxicillin & Pot Clavulanate (Augmentin) 500 Mg Tab, 1 TAB PO BID for 7 Days, #14 TAB Prov:JOYCE DING MD 08/13/24 Ibuprofen Micronized (MOTRIN TABLET) 600 Mg Tb, 600 MG PO TID PRN, #40 TAB *Black box warning-NSAIDS can increase risk of IL & hypertension, GI irritation, ulceration, bleed, perferation. Do not use post cardiac surgery. Use short duration/lowest effective dose. 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 Was a procedure done?: No Differential Dx Considerations may include: Differential diagnoses considered include but are not limited to peptic ulcer disease, GERD, gastritis, pancreatitis, myocardial infarction, pericarditis, ruptured aortic aneurysm, other X-Ray, Labs, Meds, VS Vital Signs Date Time Temp Pulse Resp B/P (MAP) Pulse Ox O2 Delivery O2 Flow Rate FiO2 09/16/25 20:09 98.7 100 20 157/107 98 98.7 Lab Test 09/16/25 20:49 Range/Units White Blood Count 5.8 4.4-10.8 10^3/uL Red Blood Count 5.58 H 4.0-5.20 10^6/uL Hemoglobin 12.3 12.2-16.2 g/dL Hematocrit 39.2 36.0-46.0 % Mean Corpuscular Volume 70.2 L 80.0-100.0 fL Mean Corpuscular Hemoglobin 22.1 L 28.0-32.0 pg Mean Corpuscular Hemoglobin Concent 31.4 L 32.0-36.0 g/dL Red Cell Distribution Width 15.7 H 11.8-14.3 % Platelet Count 266 140-450 10^3/uL Mean Platelet Volume 8.2 6.9-10.8 fL Neutrophils (%) (Auto) 40.6 37.0-80.0 % Lymphocytes (%) (Auto) 45.5 10.0-50.0 % Monocytes (%) (Auto) 7.8 0.0-12.0 % Eosinophils (%) (Auto) 5.8 0.0-7.0 % Basophils (%) (Auto) 0.3 0.0-2.0 % Neutrophils # (Auto) 2.3 1.6-8.6 10 ^3/uL Lymphocytes # (Auto) 2.6 0.4-5.4 10 ^3/uL Monocytes # (Auto) 0.4 0-1.3 10 ^3/uL Eosinophils # (Auto) 0.3 0-0.8 10 ^3/uL Basophils # (Auto) 0 0-0.2 10 ^3/uL Nucleated Red Blood Cells 0.1 % Sodium Level 142 136-145 mmol/L Potassium Level 3.4 L 3.5-5.1 mmol/L Chloride Level 103 98-107 mmol/L Carbon Dioxide Level 29 20-31 mmol/L Anion Gap 10 5-15 Blood Urea Nitrogen 9 9-23 mg/dL Creatinine 1.08 H 0.550-1.02 mg/dL Glomerular Filtration Rate Calc 60 >90 mL/min BUN/Creatinine Ratio 8.3 L 10.0-20.0 Serum Glucose 93 74-106 mg/dL Lactic Acid Level 1.1 0.4-2.0 mmol/L Calcium Level 10.3 8.7-10.4 mg/dL Total Bilirubin 0.4 0.2-1.0 mg/dL Aspartate Amino Transferase (AST) 31 13-40 U/L Alanine Aminotransferase (ALT) 84 H 7-40 U/L Alkaline Phosphatase 146 H 46-116 U/L Total Protein 8.6 H 5.7-8.2 g/dL Albumin 4.9 H 3.2-4.8 g/dL Lipase 29 12-53 U/L ABDOMINAL ULTRASOUND CLINICAL HISTORY: Epigastric pain history dilated common bile duct TECHNIQUE: Multiple grayscale and color Doppler ultrasound images were obtained of the abdomen. WID: COMPARISON: US ABDOMEN COMPLETE on DOS: 09/13/24, GALLBLADDER on DOS: 11/29/19 FINDINGS: Liver and Biliary System: Homogeneous echotexture, normal size measuring 18 cm. No focal hepatic observations. No intrahepatic bile duct dilatation. The common duct measures 0.6 cm at the angelia hepatis. The gallbladder is normal caliber without wall thickening or cholelithiasis.. Pancreas: Visualized portions are unremarkable. Kidneys: The right kidney is 9.8 cm . No hydronephrosis, increased echogenicity, shadowing stone, or focal lesion. IMPRESSION: 1. Mild hepatomegaly. 2. No acute cholecystitis or biliary ductal dilatation. Time of 1ST Reevaluation: 20:31 Reevaluation 1ST: Unchanged Patient Education/Counseling: Need For Follow Up Family Education/Counseling: No Family Present SEPSIS Sepsis Screen Date sepsis recognized/suspect: Sep 16, 2025 Time Sepsis recognized/suspect: 2014 Recent Procedure: No On Antibiotic Therapy: No Respiratory Rate >20: No Heart Rate >90: No Temp<36 C (96.8 F) or >38.3 C: No SBP <90 or MAP <65 mmHG: No New Acute Mental Status Change: No Is the patient on CPAP, BIPAP,: No Physician Orders Gallbladder (09/16/25 20:35) Vital Signs Date Time Temp Pulse Resp B/P (MAP) Pulse Ox O2 Delivery O2 Flow Rate FiO2 09/16/25 20:09 98.7 100 20 157/107 98 98.7 Laboratory Tests Test 09/16/25 20:49 Lactic Acid Level 1.1 mmol/L (0.4-2.0) White Blood Count 5.8 10^3/uL (4.4-10.8) Departure 1 Departure Time of Disposition: 22:15 Impression: Primary Impression: Abdominal pain Additional Impression: Elevated liver function tests Disposition: HOME / SELF CARE / HOMELESS Condition: Stable Additional Instructions: ED DISCHARGE INSTRUCTIONS Instructions: Please read all instructions provided in this packet carefully. Although you have been discharged from the Emergency Department, this does not mean that you have a "clean bill of health". No definitive diagnosis for your symptoms has been made today. It is possible that you are in the process of developing a serious illness. This is why you must return to the ED without fail if any new or worsening symptoms (especially if your symptoms include chest p ain, trouble breathing, abdominal pain, fever, headache, confusion, trouble seeing, or trouble walking) Avoid alcohol. Take medications as prescribed. It is very important that you see a primary care provider (PCP) within the next 1-3 days to follow up. You may need a referral to see a specialist such as a spray gun operator if your pain continues. If you are unable to get an appointment, return to the ED for re-evaluation. Abdominal Pain: Care Instructions Overview Abdominal pain has many possible causes. Some aren't serious and get better on their own in a few days. Others need more testing and treatment. If your pain continues or gets worse, you need to be rechecked and may need more tests to find out what is wrong. You may need surgery to correct the problem. Don't ignore new symptoms, such as fever, nausea and vomiting, urination problems, pain that gets worse, and dizziness. These may be signs of a more serious problem. If you are not getting better, you may need more tests or treatment. The doctor has checked you carefully, but problems can develop later. If you notice any problems or new symptoms, get medical treatment right away. Follow-up care is a garcia part of your treatment and safety. Be sure to make and go to all appointments, and call your doctor if you are having problems. It's also a good idea to know your test results and keep a list of the medicines you take. How can you care for yourself at home? Rest until you feel better. To prevent dehydration, drink plenty of fluids. Choose water and other clear liquids until you feel better. If you have kidney, heart, or liver disease and have to limit fluids, talk with your doctor before you increase the amount of fluids you drink. When you feel like eating, start with small amounts. Do not have alcohol, caffeine, or spicy, hot, or high-fat foods for a day or two. Avoid anti-inflammatory medicines such as aspirin, ibuprofen (Advil, Motrin), and naproxen (Aleve). These can cause stomach upset. Talk to your doctor if you take daily aspirin for another health problem. When should you call for help? Call 911 anytime you think you may need emergency care. For example, call if: You passed out (lost consciousness). You pass maroon or very bloody stools. You vomit blood or what looks like coffee grounds. You have severe belly pain. Call your doctor now or seek immediate medical care if: Your pain gets worse, especially if it becomes focused in one area of your belly. You have a new or higher fever. Your stools are black and look like tar, or they have streaks of blood. You have unexpected vaginal bleeding. You have symptoms of a urinary tract infection. These may include: Pain when you urinate. Urinating more often than usual. Blood in your urine. You are dizzy or lightheaded, or you feel like you may faint. Watch closely for changes in your health, and be sure to contact your doctor if: You are not getting better as expected. Credits for Abdominal Pain: Care Instructions Current as of: July 21, 2023 Author: Negin [employer], [employer] Staff Clinical Review Board All [employer] education is reviewed by a team that includes physicians, nurses, advanced practitioners, registered dieticians, and other healthcare professionals. LIVER FUNCTION TESTS EDUCATION: What does it mean to have elevated liver enzymes? If you have high levels of liver enzymes in your blood, you have elevated liver enzymes. High liver enzyme levels may be temporary, or they may be a sign of a medical condition like hepatitis or liver disease. Certain medications can also cause elevated liver enzymes. What are liver enzymes? Liver enzymes are proteins that speed up chemical reactions in your body. These chemical reactions include producing bile and substances that help your blood clot, breaking down food and toxins, and fighting infection. Common liver enzymes include: Alkaline phosphatase (ALP). Alanine transaminase (ALT). Aspartate transaminase (AST). Gamma-glutamyl transferase (GGT). If your liver is injured, it releases enzymes into your bloodstream (most commonly ALT or AST). Why does a healthcare provider check liver enzymes? Your healthcare provider may check your liver enzyme levels with a liver f unction test (LFT) or liver panel. A liver function test is a type of blood test. Your provider may order an LFT during a regular checkup if youre at risk for liver injury or disease or if you have symptoms of liver damage. Possible Causes What causes elevated liver enzymes? Liver diseases, medical conditions, medications and infections can cause elevated liver enzymes. What are the risk factors for elevated liver enzymes? Factors that put you at risk for elevated liver enzymes include: Alcohol use. Certain medications, herbs and vitamin supplements. Diabetes. Family history of liver disease. Hepatitis or exposure to hepatitis. What are the symptoms of elevated liver enzymes? Most people with elevated liver enzymes dont have symptoms. If liver damage is the cause of elevated liver enzymes, you may have symptoms such as: Abdominal (stomach) pain. Dark urine (pee). Fatigue (feeling tired). Itching. Jaundice (yellowing of your skin or eyes). Light-colored stools (poop). Loss of appetite. Nausea and vomiting. Care and Treatment Elevated liver enzymes have a variety of causes, including liver disease and medication. Elevated liver enzymes may also be temporary. If your blood test shows high levels of liver enzymes, talk with your provider. Theyll work to fig ure out the cause. (From [facility]) e-Prescriptions Sucralfate (CARAFATE) 1 Gm Tab 1 GM OR TID for 5 Days, #15 TAB Prov: ADINA VERDUGO MD 09/16/25 Omeprazole (Gnp Omeprazole) 20 Mg Tab 1 TAB PO DAILY for 15 Days, #15 TAB 1 Refill Prov: ADINA VERDUGO MD 09/16/25 Comments 55-year-old female presented with epigastric abdominal pain. No peritoneal signs on abdominal exam. No evidence of acute abdomen at this time. patient is well appearing. Labs show no leukocytosis and mild elevation of LFTs. Imaging shows no acute cholecystitis. at the time of discharge patient is afebrile and is not hypotensive. Low suspicion for acute hepatobiliary disease (including acute cho lecystitis, acute pancreatitis, PUD (including perforation), acute infectious process (pneumonia, hepatitis, pyelonephritis), acute appendicitis, vascular catastrophe, bowel obstructions, viscous perforation. Presentation not consistent with other acute, emergent causes of abdominal pain at this time. Patient felt stable for discharge home to follow up with the primary care provid er promptly. Patient advised to return to the emergency department with any new, worsening or concerning symptoms. Critical Care Note Critical Care Time?: No Stability Stability form required: No Heart Score Heart Score: Heart Score Response (Comments) Value History N/A 0 EKG N/A 0 Age N/A 0 Risk Factors N/A 0 Troponin N/A 0 Total 0 I personally scribed for ADINA VERDUGO MD ([email or web address]) on 09/16/25 at 20:36. Electronically submitted by Javon Franklin ([employer] I personally scribed for ADINA VERDUGO MD ([email or web address]) on 09/16/25 at 21:36. Electronically submitted by Javon Franklin ([employer] ADINA VERDUGO MD Sep 16, 2025 20:36
--- NOTE | 2025-09-16 21:29 | DVH ---
ABDOMINAL ULTRASOUND CLINICAL HISTORY: Epigastric pain history dilated common bile duct TECHNIQUE: Multiple grayscale and color Doppler ultrasound images were obtained of the abdomen. WID: COMPARISON: US ABDOMEN COMPLETE on DOS: 09/13/24, GALLBLADDER on DOS: 11/29/19 FINDINGS: Liver and Biliary System: Homogeneous echotexture, normal size measuring 18 cm. No focal hepatic observations. No intrahepatic bile duct dilatation. The common duct measures 0.6 cm at the angelia hepatis. The gallbladder is normal caliber without wall thickening or cholelithiasis.. Pancreas: Visualized portions are unremarkable. Kidneys: The right kidney is 9.8 cm . No hydronephrosis, increased echogenicity, shadowing stone, or focal lesion. IMPRESSION: 1. Mild hepatomegaly. 2. No acute cholecystitis or biliary ductal dilatation.
[2025-09-16 21:35] LABS: Hematocrit 39.2 % (36.0-46.0); Hemoglobin 12.3 g/dL (12.2-16.2); Mean Corpuscular Hemoglobin 22.1 pg (28.0-32.0); Mean Corpuscular Volume 70.2 fL (80.0-100.0); Nucleated Red Blood Cells % 0.1 %
[2025-09-16 21:54] LABS: Anion Gap 10 (5-15); BUN/Creatinine Ratio 8.3 (10.0-20.0); Bilirubin, Total 0.4 mg/dL (0.2-1.0); Blood Urea Nitrogen 9 mg/dL (9-23); Calcium 10.3 mg/dL (8.7-10.4); Carbon Dioxide 29 mmol/L (20-31); Chloride 103 mmol/L (98-107); Glucose 93 mg/dL (74-106); Lipase 29 U/L (12-53); Sodium 142 mmol/L (136-145)
[2025-09-16 21:55] LABS: Alanine Aminotransferase 84 U/L (7-40); Alkaline Phosphatase 146 U/L (46-116); Potassium 3.4 mmol/L (3.5-5.1); Total Protein 8.6 g/dL (5.7-8.2)
[2025-09-16 21:56] LABS: Albumin 4.9 g/dL (3.2-4.8)
[2025-09-16 22:13] VITALS: TEMP 98.4
[2025-09-16] MEDS ORDERED: SUCR1TAB31 OR (22:16)
[2025-09-16] MEDS ORDERED: OMEP20TA PO (22:16)
[2025-09-16] MEDS: MORPHINE SULFATE 4 MG/ML SYR/VIAL IM ONE (22:18)
[2025-09-16] MEDS: LIDOCAINE VISCOUS 2% 15ML UD PO ONE (22:19)
[2025-09-16] MEDS: MAALOX PLUS or MAALOX 30 ML PO ONE (22:19)
[2025-09-16 22:22] VITALS: O2SAT 98
[2025-09-16 22:30] VITALS: BP 161/111; PULSE 85; RESP 16; O2SAT 95
== END 2025-09-16 22:38 | disposition home or self-care (01) ==
LOC: ER 20:07
DX: R10.13 Epigastric pain (principal); R79.89 Other specified abnormal findings of blood chemistry; F17.210 Nicotine dependence, cigarettes, uncomplicated; F12.90 Cannabis use, unspecified, uncomplicated; F19.90 Other psychoactive substance use, unspecified, uncomplicated; I10 Essential (primary) hypertension; Z79.899 Other long term (current) drug therapy; Z98.51 Tubal ligation status; Z98.890 Other specified postprocedural states
CPT/HCPCS: 36415; 76705; 80053; 83605; 83690; 85025; 96372; 99285; J2270